=== PATIENT | male | born 1995 | race African-American/Black ===

== ENCOUNTER 2017-04-24 13:58 | Emergency (ER) | payer OTHER ==
[2017-04-24 14:30] VITALS: BP 130/88
--- NOTE | 2017-04-24 15:44 | UC ---
Lower Extremity/Ankle HPI - HPI Summary HPI Summary: right foot pain - History of Current Complaint Chief Complaint: UCLowerExtremity Stated Complaint: RIGHT FOOT COMPLAINT Time Seen by Provider: 04/24/17 15:21 Hx Obtained From: Patient Onset/Duration: Sudden Onset, Lasting Days - 2, Worse Since - today Severity Initially: Moderate Severity Currently: Moderate Pain Intensity: 8 Pain Scale Used: 0-10 Numeric Aggravating Factor(s): Standing, Ambulation Alleviating Factor(s): Rest, Elevation, Ice Able to Bear Weight: Yes - with pain - Allergies/Home Medications Allergies/Adverse Reactions: Allergies Allergy/AdvReac Type Severity Reaction Status Date / Time No Known Allergies Allergy Verified 04/24/17 14:30 PMH/Surg Hx/FS Hx/Imm Hx Previously Healthy: No - Gout - Surgical History Surgical History: None - Family History Known Family History: Positive: Hypertension - Social History Occupation: Employed Full-time Lives: With Family Alcohol Use: Occasionally Substance Use Type: None Smoking Status (MU): Never Smoked Tobacco Review of Systems Constitutional: Negative Skin: Negative Eyes: Negative ENT: Negative Respiratory: Negative Cardiovascular: Negative Gastrointestinal: Negative Genitourinary: Negative Motor: Negative Neurovascular: Negative Musculoskeletal: Negative, Arthralgia - lateral right foot Neurological: Negative Psychological: Negative Is Patient Immunocompromised?: No All Other Systems Reviewed And Are Negative: Yes Physical Exam Triage Information Reviewed: Yes Appearance: Well-Appearing, Well-Nourished, Pain Distress Vital Signs: Initial Vital Signs Temp 97.7 F 04/24/17 14:26 Pulse 94 04/24/17 14:26 Resp 16 04/24/17 14:26 BP 130/88 04/24/17 14:26 Pulse Ox 99 04/24/17 14:26 Vital Signs Reviewed: Yes Eye Exam: Normal Eyes: Positive: Conjunctiva Clear ENT Exam: Normal ENT: Positive: Normal ENT inspection, Hearing grossly normal, Pharynx normal, Nasal congestion, Nasal drainage. Negative: TMs normal, Tonsillar swelling, Tonsillar exudate, Trismus, Muffled/hoarse voice Dental Exam: Normal Neck exam: Normal Neck: Positive: Supple, Nontender Respiratory Exam: Normal Respiratory: Positive: Chest non-tender, No respiratory distress, No accessory muscle use Cardiovascular Exam: Normal Cardiovascular: Positive: RRR, No Murmur, Pulses Normal, Brisk Capillary Refill Bowel Sounds: Positive: Present Musculoskeletal Exam: Normal Musculoskeletal: Positive: Strength Intact, ROM Intact, No Edema Neurological Exam: Normal Neurological: Positive: Alert, Muscle Tone Normal Psychological Exam: Normal Psychological: Positive: Normal Response To Family, Age Appropriate Behavior Skin Exam: Normal Diagnostics - Laboratory Diagnostic Studies Completed/Ordered: x-ray (-) - Radiology No standard instances Xray Interpretation: No Acute Changes Radiology Interpretation Completed By: Radiologist Lower Extremity Course/Dx - Course Course Of Treatment: cam boot, crutchers, ibuprofren,rice, follow with ortho this week - Differential Dx/Diagnosis Provider Diagnoses: occult right 5 MT fracture Discharge - Discharge Plan Condition: Stable Disposition: HOME Prescriptions: Ibuprofen TAB* [Motrin TAB* 600 MG] 600 mg PO Q6H PRN #30 tab PRN Reason: Pain Patient Education Materials: Crutch Instructions (ED), Suspected Fracture (ED) , RICE Therapy (ED) Forms: *Work Release Referrals: Perico Giordano MD [Medical Doctor] - 2 Days
[2017-04-24] MEDS ORDERED: Ibuprofen TAB* 600 MG PO ONE (15:55)
--- NOTE | 2017-04-24 16:12 | RAD ---
INDICATION: Right foot pain COMPARISON: None TECHNIQUE: AP, lateral, and oblique views were obtained. FINDINGS: The bony structures, joint spaces, and soft tissues are normal for age. IMPRESSION: NEGATIVE EXAMINATION.
== END 2017-04-24 16:55 | disposition home or self-care (01) ==
LOC: UCCORT 13:58
DX: M79.671 Pain in right foot (principal)
CPT/HCPCS: 99213; A9270-GY; G0463

== ENCOUNTER 2019-06-23 14:49 | Emergency (ER) | payer OTHER ==
[2019-06-23 15:07] VITALS: BP 151/74
--- NOTE | 2019-06-23 15:19 | UC ---
Lower Extremity/Ankle HPI - HPI Summary HPI Summary: Right foot pain worsening over the past 6 days. No known injury. Works at [employer] 9 hours every day. No chronic health problems. Pt states he had this once in the past but it involved base of great toe and resolved without complications. - History of Current Complaint Chief Complaint: UCLowerExtremity Stated Complaint: RIGHT FOOT COMPLAINT Time Seen by Provider: 06/23/19 15:18 Hx Obtained From: Patient Onset/Duration: Gradual Onset Severity Initially: Mild Severity Currently: Moderate Pain Intensity: 7 Aggravating Factor(s): Ambulation Alleviating Factor(s): Nothing Able to Bear Weight: Yes - Allergies/Home Medications Allergies/Adverse Reactions: Allergies Allergy/AdvReac Type Severity Reaction Status Date / Time No Known Allergies Allergy Verified 06/23/19 15:00 PMH/Surg Hx/FS Hx/Imm Hx Previously Healthy: Yes - Surgical History Surgical History: None - Family History Known Family History: Positive: Hypertension - Social History Alcohol Use: Occasionally Substance Use Type: None Smoking Status (MU): Never Smoked Tobacco Review of Systems All Other Systems Reviewed And Are Negative: Yes Musculoskeletal: Positive: Other: - Pain mostly lateral right foot. Physical Exam Triage Information Reviewed: Yes Appearance: Well-Appearing, No Pain Distress, Well-Nourished Vital Signs: Initial Vital Signs Temp 98.7 F 06/23/19 15:01 Pulse 101 06/23/19 15:01 Resp 18 06/23/19 15:01 BP 151/74 06/23/19 15:01 Pulse Ox 97 06/23/19 15:01 Vital Signs Reviewed: Yes Musculoskeletal: Positive: Strength Intact, ROM Intact, Other: - Mild swelling dorsum of right foot with pain on palpation base of 5th metatarsal. No deformity , erythema or bruising. Good periph pulses, neurosensation, cap refill. Neurological Exam: Normal Psychological Exam: Normal Skin: Positive: Other - See above notes Lower Extremity Course/Dx - Course Course Of Treatment: Right foot x-ray:FINDINGS: BONE DENSITY: Normal. BONES: There is no displaced fracture. JOINTS: There is no arthropathy. ALIGNMENT: There is no dislocation. SOFT TISSUES: Unremarkable. OTHER FINDINGS: None. IMPRESSION: NO ACUTE OSSEOUS INJURY. IF SYMPTOMS PERSIST, RECOMMEND REPEAT IMAGING. REX bandage applied for comfort - Differential Dx/Diagnosis Provider Diagnosis: Right foot sprain Discharge ED - Sign-Out/Discharge Documenting (check all that apply): Patient Departure All imaging exams completed and their final reports reviewed: Yes - Discharge Plan Condition: Good Disposition: HOME Patient Education Materials: Foot Sprain (ED) Forms: *Work Release Referrals: Perico Giordano MD [Medical Doctor] - Casi Ocasio PA [Primary Care Provider] - Additional Instructions: Elevate as much as possible. Apply warm, moist compresses to the sore area. Take Ibuprofen 600 mg every 8 hours with fod. Follow up with the Orthopedist in 4-5 days if no improvement. May remove the REX bandage as needed - Billing Disposition and Condition Condition: GOOD Disposition: Home
== END 2019-06-23 16:00 | disposition home or self-care (01) ==
LOC: UCCORT 14:49
DX: S93.601A Unspecified sprain of right foot, initial encounter (principal); X58.XXXA Exposure to other specified factors, initial encounter; Y92.9 Unspecified place or not applicable
CPT/HCPCS: 99212; G0463